=== PATIENT | male | born 1990 | race Caucasian/White ===

== ENCOUNTER 2018-02-07 07:37 | Observation (INO) | payer SELFPAY ==
[2018-02-07 08:17] LABS: AUTOMATED NEUTROPHIL # 3.2 TH/MM3 (1.8-7.7); BASOPHIL % 0.6 % (0.0-2.0); EOSINOPHIL # 0.1 TH/MM3 (0-0.4); EOSINOPHIL % 2.1 % (0.0-4.0); HEMO FLAGS DIFF FINAL; HEMOGLOBIN 15.4 GM/DL (13.0-17.0); LYMPH % 35.8 % (9.0-44.0); LYMPHOCYTE # 2.2 TH/MM3 (1.0-4.8); MEAN CELL VOLUME 90.6 FL (80.0-100.0); MEAN CORPUSCULAR HEMOGLOBIN 31.8 PG (27.0-34.0); MEAN CORPUSCULAR HGB CONC 35.1 % (32.0-36.0); MEAN PLATELET VOLUME 9.3 FL (7.0-11.0); MONO % 8.9 % (0.0-8.0); MONOCYTE # 0.6 TH/MM3 (0-0.9); NEUT % 52.6 % (16.0-70.0); PLATELET COUNT 192 TH/MM3 (150-450); RED BLOOD COUNT 4.86 MIL/MM3 (4.50-5.90); RED CELL DISTRIBUTION WIDTH 13.2 % (11.6-17.2); WHITE BLOOD COUNT 6.2 TH/MM3 (4.0-11.0)
[2018-02-07 08:46] LABS: ANION GAP 7 MEQ/L (5-15); BICARBONATE 28.1 MEQ/L (21.0-32.0); BLOOD UREA NITROGEN 15 MG/DL (7-18); CHLORIDE 106 MEQ/L (98-107); CREATININE 0.99 MG/DL (0.60-1.30); GLOMERULAR FILTRATION RATE 89 ML/MIN (>89); GLUCOSE,RANDOM 98 MG/DL (74-106); SODIUM (NA) 141 MEQ/L (136-145)
[2018-02-07 08:55] LABS: POTASSIUM 4.2 MEQ/L (3.5-5.1)
[2018-02-07] MEDS: GADODIAMIDE PF 287 MG/ML 5 ML VIAL (for RAD MRI) IV PUSH (09:23)
[2018-02-07] MEDS ORDERED: NALOXONE HCL 0.4 MG/ML AMP IV PUSH (11:45)
[2018-02-07] MEDS ORDERED: ACETAMINOPHEN 325 MG TAB PO (11:45)
[2018-02-07] MEDS ORDERED: MAGNESIUM HYDROXIDE SUSP 30 ML CUP PO (11:45)
[2018-02-07] MEDS ORDERED: SODIUM CHLORIDE 0.9% FLUSH 10 ML FLUSH IV FLUSH (11:45)
[2018-02-07] MEDS ORDERED: ONDANSETRON HCL 4 MG/2 ML VIAL IVP (11:45)
[2018-02-07] MEDS ORDERED: SENNOSIDES 8.6 MG TAB PO (11:45)
[2018-02-07] MEDS ORDERED: BISACODYL 10 MG SUPP RECTAL (11:45)
[2018-02-07] MEDS ORDERED: LACTULOSE SYRUP 20 GM/30 ML CUP PO (11:45)
[2018-02-07] MEDS ORDERED: MECLIZINE HCL 25 MG TAB PO (12:00)
[2018-02-07 14:27] LABS: ALCOHOL LESS THAN 3 MG/DL (0-5)
[2018-02-07] MEDS: SODIUM CHLOR 0.9% 1000 ML INJ 1,000 ML IV ×2 (14:28→23:27)
[2018-02-07] MEDS: NICOTINE 7 MG/24 HR PATCH T-DERMAL (14:28)
[2018-02-07] MEDS: SODIUM CHLORIDE 0.9% FLUSH 10 ML FLUSH IV FLUSH (20:45)
[2018-02-07] MEDS: DOCUSATE SODIUM 50 MG/SENNA 8.6 MG TAB PO (20:45)
[2018-02-07] MEDS: REMOVE OLD PATCH T-DERMAL (20:46)
[2018-02-08 05:32] LABS: AUTOMATED NEUTROPHIL # 3.2 TH/MM3 (1.8-7.7); BASOPHIL % 0.5 % (0.0-2.0); EOSINOPHIL # 0.2 TH/MM3 (0-0.4); EOSINOPHIL % 2.7 % (0.0-4.0); HEMATOCRIT 40.1 % (39.0-51.0); HEMO FLAGS DIFF FINAL; HEMOGLOBIN 13.9 GM/DL (13.0-17.0); LYMPH % 39.6 % (9.0-44.0); LYMPHOCYTE # 2.6 TH/MM3 (1.0-4.8); MEAN CELL VOLUME 91.8 FL (80.0-100.0); MEAN CORPUSCULAR HEMOGLOBIN 31.7 PG (27.0-34.0); MEAN CORPUSCULAR HGB CONC 34.5 % (32.0-36.0); MEAN PLATELET VOLUME 9.2 FL (7.0-11.0); MONO % 8.6 % (0.0-8.0); MONOCYTE # 0.6 TH/MM3 (0-0.9); NEUT % 48.6 % (16.0-70.0); PLATELET COUNT 161 TH/MM3 (150-450); RED BLOOD COUNT 4.37 MIL/MM3 (4.50-5.90); WHITE BLOOD COUNT 6.5 TH/MM3 (4.0-11.0)
[2018-02-08 05:56] LABS: ALBUMIN 3.7 GM/DL (3.4-5.0); ANION GAP 7 MEQ/L (5-15); AST (GOT) 11 U/L (15-37); BICARBONATE 29.1 MEQ/L (21.0-32.0); BLOOD UREA NITROGEN 14 MG/DL (7-18); CALCIUM 8.6 MG/DL (8.5-10.1); CHLORIDE 107 MEQ/L (98-107); CREATININE 0.86 MG/DL (0.60-1.30); GLOMERULAR FILTRATION RATE 105 ML/MIN (>89); GLUCOSE,RANDOM 93 MG/DL (74-106); SODIUM (NA) 143 MEQ/L (136-145)
[2018-02-08 06:00] LABS: ALKALINE PHOSPHATASE 48 U/L (45-117); ALT (GPT) 12 U/L (12-78); TOTAL BILIRUBIN ADULT 0.3 MG/DL (0.2-1.0); TOTAL PROTEIN 6.5 GM/DL (6.4-8.2)
[2018-02-08] MEDS: NICOTINE 7 MG/24 HR PATCH T-DERMAL (08:03)
[2018-02-08] MEDS: SODIUM CHLOR 0.9% 1000 ML INJ 1,000 ML IV (08:04)
[2018-02-08] MEDS: SODIUM CHLORIDE 0.9% FLUSH 10 ML FLUSH IV FLUSH (08:04)
[2018-02-08] MEDS: DOCUSATE SODIUM 50 MG/SENNA 8.6 MG TAB PO (08:04)
[2018-02-08 09:17] LABS: RPR SCREEN FOR REFLEX NON-REACTIVE (NON-REACTVE)
[2018-02-08] MEDS: TOPIRAMATE 25 MG TAB PO (11:40)
[2018-02-09 08:21] LABS: THIAMINE 211 nmol/L (70-180)
[2018-02-09 16:13] LABS: ANA SCREEN NEG (NEG)
[2018-02-09 21:46] LABS: ARSENIC URINE Not Detected mcg/spec (0-35); AS CONC <15 mcg/L (0-35); CADMIUM CONC <0.2 mcg/L (0.0-1.3); CADMIUM URINE Not Detected mcg/spec (0.0-1.3); COLLECTION DURATION 24 h; LEAD CONC <1 mcg/L (0-4); LEAD URINE Not Detected mcg/spec (0-4); MERCURY CONC <1 mcg/L (0-9); MERCURY URINE Not Detected mcg/spec (0-9); URINE TOTAL VOLUME 3100 mL
[2018-02-10 19:52] LABS: LYME DISEASE 18KD IGG BAND NON-REACTIVE (NON REACTIV); LYME DISEASE 23 IGG BAND REACTIVE (NON REACTIV); LYME DISEASE 23KD IGM BAND NON-REACTIVE (NONREACTIVE); LYME DISEASE 28KD IGG BAND NON-REACTIVE (NON REACTIV); LYME DISEASE 30KD IGG BAND NON-REACTIVE (NON REACTIV); LYME DISEASE 39 KD IGG BAND NON-REACTIVE (NONREACTIVE); LYME DISEASE 39KD IGM BAND NON-REACTIVE (NONREACTIVE); LYME DISEASE 41KD IGG BAND NON-REACTIVE (NONREACTIVE); LYME DISEASE 41KD IGM BAND NON-REACTIVE (NONREACTIVE); LYME DISEASE 45KD IGG BAND NON-REACTIVE (NONREACTIVE); LYME DISEASE 58KD IGG BAND NON-REACTIVE (NONREACTIVE); LYME DISEASE 66KD IGG BAND NON-REACTIVE (NONREACTIVE); LYME DISEASE 93KD IGG BAND NON-REACTIVE (NONREACTIVE); LYME DISEASE IGM WB NEGATIVE (NONREACTIVE)
== END 2018-02-08 16:21 | disposition home or self-care (01) ==
LOC: NEPE 07:37 → NEDA 10:35 → NEPGCP 13:39
DX: G25.0 Essential tremor (principal); R42 Dizziness and giddiness; R90.89 Other abnormal findings on diagnostic imaging of central nervous system; A69.20 Lyme disease, unspecified; F12.90 Cannabis use, unspecified, uncomplicated; F17.210 Nicotine dependence, cigarettes, uncomplicated; Z87.820 Personal history of traumatic brain injury; Z83.3 Family history of diabetes mellitus
CPT/HCPCS: 70544; 70553; 80048; 80053; 80307; 82175; 82300; 82607; 83655; 83825; 84425; 84443; 85025; 86038; 86592; 86617; 86617-59; 86703; 95819; 96360; 96361; 97161-GP; 99285-25